=== PATIENT | female | born 1995 | race Hispanic/Latino ===

== ENCOUNTER 2024-01-19 15:32 | Emergency (ER) | payer OTHER ==
[2024-01-19] MEDS ORDERED: Ketorolac Tromethamine 30 MG (1 mL) VIAL ONE (17:15)
[2024-01-19] MEDS ORDERED: HYDROcodone/Acetaminophen 10/325 mg Tablet ONE (17:15)
[2024-01-19] MEDS ORDERED: Ondansetron ODT 4 MG TAB ONE (17:15)
== END 2024-01-20 17:07 | disposition home or self-care (01) ==
LOC: ERS 15:32
DX: S06.0X0A Concussion without loss of consciousness, initial encounter (principal); S16.1XXA Strain of muscle, fascia and tendon at neck level, initial encounter; S93.401A Sprain of unspecified ligament of right ankle, initial encounter; W10.9XXA Fall (on) (from) unspecified stairs and steps, initial encounter
CPT/HCPCS: 70450; 71045; 72125; 96372; J1885; Q0162